=== PATIENT | male | born 1980 | race Caucasian/White ===

== ENCOUNTER 2022-08-21 20:20 | Emergency (ER) | payer MEDICAID ==
[~2022-08-21] VITALS: Ht 157.5 cm; Wt 78.0 kg
[2022-08-21 20:36] VITALS: BP 119/81
[2022-08-21 20:40] VITALS: BP 119/81
--- NOTE | 2022-08-21 20:43 | NUR ---
COVID-19 and flu swabs collected and sent to lab.
--- NOTE | 2022-08-22 02:02 | NUR ---
Patient taken to bed 8.
--- NOTE | 2022-08-22 02:25 | NUR ---
Dr. Lin examining patient.
[2022-08-22] MEDS ORDERED: KETOROLAC 30 MG/ML VIAL IM ONE (02:35)
[2022-08-22] MEDS ORDERED: diazePAM 5 MG TAB PO ONE (02:35)
--- NOTE | 2022-08-22 02:41 | NUR ---
X-Ray at bedside.
--- NOTE | 2022-08-22 03:58 | NUR ---
Dr. Lin examining patient.
[2022-08-22] MEDS ORDERED: ACETAMIN/CODEINE 120/12MG-5ML 5 ML UDC PO ONE (04:00)
--- NOTE | 2022-08-22 04:07 | NUR ---
PT TAKEN TO XRAY
--- NOTE | 2022-08-22 04:08 | NUR ---
pt to CT
--- NOTE | 2022-08-22 04:15 | NUR ---
PT RETURN FROM RADIOLOGY
[2022-08-22] MEDS ORDERED: NAPR-54 PO ×2 (04:42→05:55)
[2022-08-22] MEDS ORDERED: ROBAC PO ×2 (04:42→05:55)
--- NOTE | 2022-08-22 05:55 | NUR ---
Patient discharged with v/s stable. Written and verbal after care instructions given and explained. Patient alert, oriented and verbalized understanding of instructions. Ambulatory with steady gait. All questions addressed prior to discharge. ID band removed. Patient advised to follow up with PMD. Rx of naproxen and codeine phosphate given. Opportunity to ask questions provided and answered.
== END 2022-08-22 05:55 | disposition home or self-care (01) ==
LOC: MED 20:20
DX: S29.012A Strain of muscle and tendon of back wall of thorax, initial encounter (principal); Z20.822 Contact with and (suspected) exposure to COVID-19; J20.9 Acute bronchitis, unspecified; Z79.899 Other long term (current) drug therapy; X58.XXXA Exposure to other specified factors, initial encounter; Y93.89 Activity, other specified; Y92.89 Other specified places as the place of occurrence of the external cause; Y99.8 Other external cause status
CPT/HCPCS: 71045; 72040; 87426; 87804; 93005; 96372; 99285; J1885; Q0092